=== PATIENT | male | born 1955 | race African-American/Black ===

== ENCOUNTER 2017-11-26 09:54 | Inpatient (IN) | payer OTHER ==
[2017-11-26 10:53] VITALS: BMI 25.1
--- NOTE | 2017-11-26 12:26 | HP ---
Admission ROS [facility] Chief Complaint: i need help to go to rehab for cocaine and marijuana dependence Allergies/Adverse Reactions: Allergies Allergy/AdvReac Type Severity Reaction Status Date / Time No Known Allergies Allergy Verified 11/26/17 11:08 History of Present Illness: this 61 years old male with cocaine and marijuana dependence,seeking rehab, never been in the treatment before type 2 dm for 12 yeras arthritis schizophrenia - Ebola screening Have you traveled outside of the country in the last 21 days: No Have you had contact with anyone from an Ebola affected area: No Have you been sick,other than usual withdrawal symptoms: No Do you have a fever: No - Review of Systems Constitutional: No Symptoms Reported EENT: reports: No Symptoms Reported Respiratory: reports: No Symptoms reported Cardiac: reports: No Symptoms Reported GI: reports: No Symptoms Reported : reports: No Symptoms Reported Musculoskeletal: reports: No Symptoms Reported Neuro: reports: No Symptoms reported Endocrine: reports: No Symptoms Reported Hematology: reports: No Symptoms Reported Psychiatric: reports: other (schizophrenia) Patient History - Patient Medical History Hx Anemia: No Hx Asthma: No Hx Chronic Obstructive Pulmonary Disease (COPD): No Hx Cancer: No Hx Cardiac Disorders: No Hx Congestive Heart Failure: No Hx Hypertension: Yes (no med) Hx Hypercholesterolemia: No Hx Pacemaker: No HX Cerebrovascular Accident: No Hx Seizures: No Hx Diabetes: Yes (NIDDM) Hx Gastrointestinal Disorders: No Hx Liver Disease: No Hx Genitourinary Disorders: No Hx Sexually Transmitted Disorders: No Hx Renal Disease (ESRD): No Hx Thyroid Disease: No Hx Human Immunodeficiency Virus (HIV): No (last 2017 negative) Hx Hepatitis C: No Hx Depression: Yes Hx Suicide Attempt: No Hx Bipolar Disorder: No Hx Schizophrenia: Yes Other Medical History: no suicidal,no homicidal - Patient Surgical History Past Surgical History: Yes Hx Neurologic Surgery: No Hx Cataract Extraction: No Hx Cardiac Surgery: No Hx Lung Surgery: No Hx Breast Surgery: No Hx Breast Biopsy: No Hx Abdominal Surgery: No Hx Appendectomy: No Hx Cholecystectomy: No Hx Genitourinary Surgery: No Hx Section: No Hx Orthopedic Surgery: No Other Surgical History: laceration, left side of face - PPD History Previous Implant?: Yes Documented Results: Negative w/o proof Implanted On Prior R Admission?: No PPD to be Administered?: Yes - Smoking Cessation Smoking history: Never smoked Have you smoked in the past 12 months: No Hx Chewing Tobacco Use: No Initiated information on smoking cessation: No - Substance & Tx. History Hx Alcohol Use: No Hx Substance Use: Yes Substance Use Type: Cocaine - Substances Abused Cocaine Route: Smoking Frequency: 3-6 times per week Amount used: $30 Age of first use: 17 Date of Last Use: 11/25/17 Marijuana/Hashish Route: Smoking Frequency: 1-3 times last 30 days Amount used: 5$ Age of first use: 17 Date of Last Use: 11/25/17 Family Disease History - Family Disease History Family History: Denies Admission Physical Exam [facility] - Vital Signs Vital Signs: Vital Signs - 24 hr 11/26/17 10:51 Temperature 98.2 F Pulse Rate 90 Respiratory 18 Rate Blood Pressure 140/80 - Physical General Appearance: Yes: Within Normal Limits HEENTM: Yes: Normal ENT Inspection, DI, Pharynx Normal Respiratory: Yes: Lungs Clear, Normal Breath Sounds, No Respiratory Distress Neck: Yes: Within Normal Limits, Supple, Trachea in good position Breast: Yes: Within Normal Limits Cardiology: Yes: Within Normal Limits, Regular Rhythm, Regular Rate, S1, S2 Abdominal: Yes: Normal Bowel Sounds, Non Tender, Flat, Soft Genitourinary: Yes: Within Normal Limits Back: Yes: Within Normal Limits Musculoskeletal: Yes: Within Normal Limits Extremities: Yes: Within Normal Limits Neurological: Yes: 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 intact, Fully Oriented, Alert, Motor Strength 5/5 Integumentary: Yes: Within Normal Limits Lymphatic: Yes: Within Normal Limits - Diagnostic (1) Cocaine dependence Current Visit: Yes Status: Acute (2) Cannabis dependence Current Visit: Yes Status: Acute (3) Schizophrenia Current Visit: Yes Status: Acute (4) DM type 2 (diabetes mellitus, type 2) Current Visit: Yes Status: Acute Cleared for Admission [facility] - Detox or Rehab Claeared for Rehab Admission: Yes [facility] Breath Alcohol Content Breath Alcohol Content: 0 Urine Drug Screen - Results Drug Screen Negative: No Urine Drug Screen Results: THC-Marijuana, JOSIANE-Cocaine Inpatient Rehab Admission - Initial Determination Are CD services needed?: Yes Free of communicable disease: Yes Not in need of hospitalization: Yes - Rehab Admission Criteria Poor recovery environment: Yes Comorbidities: Yes Patient is meeting Inpatient Rehab admission criteria:: Yes
[2017-11-26] MEDS ORDERED: IBUPROFEN 400 MG TABLET (FP) PO PRN (12:40)
[2017-11-26] MEDS ORDERED: MAGNESIUM CITRATE 300 ML BOTTLE PO PRN (12:40)
[2017-11-26] MEDS ORDERED: P-EPHED 60MG/TRIPROLIDI 2.5MG TABLET PO PRN (12:40)
[2017-11-26] MEDS ORDERED: hydrOXYzine PAMOATE 50 MG CAPSULE (FP) PO PRN (12:40)
[2017-11-26] MEDS ORDERED: MENTHOL/PHENOL 1 EACH UD MM PRN (12:40)
[2017-11-26] MEDS ORDERED: MAGNESIUM HYDROX 2400MG/30ML ORAL SUSPENSION 30 ML CUP PO PRN (12:40)
[2017-11-26] MEDS ORDERED: MAG HYDROX/AL HYDROX/SIMETH 30 ML UNIT-DOSE CUP PO PRN (12:40)
[2017-11-26] MEDS ORDERED: ACETAMINOPHEN 325 MG TABLET (FP) PO PRN (12:40)
[2017-11-26] MEDS ORDERED: guaiFENesin/D-METHORPHAN HB 10 ML UNIT-DOSE CUPS PO PRN (12:40)
[2017-11-26] MEDS ORDERED: LOPERAMIDE HCL 2 MG CAPSULE PO PRN (12:40)
[2017-11-26] MEDS: metFORMIN HCL 500 MG TABLET (FP) PO SCH (16:59)
[2017-11-26] MEDS: INSULIN (NOVOLOG) ASPART 100 UNITS/ML 10ML VIAL SQ SCH ×2 (17:01→21:49)
[2017-11-26 18:45] LABS: HEMATOCRIT 36.9 % (35.4-49); MCH 26.4 pg (25.7-33.7); MCHC 32.4 g/dl (32.0-35.9); MEAN CELL VOLUME 81.4 fl (80-96); MEAN PLT VOLUME 8.6 fl (7.5-11.1); PLATELET COUNT 245 K/MM3 (134-434); RBC 4.54 M/mm3 (4.00-5.60); RDW 14.2 % (11.9-15.9); WHITE BLOOD COUNT 5.3 K/mm3 (4.0-10.0)
[2017-11-26 18:52] LABS: ALBUMIN 3.8 g/dl (3.4-5.0); ANION GAP 10 (8-16); BLOOD UREA NITROGEN 19 mg/dL (7-18); CALCIUM 9.8 mg/dL (8.5-10.1); CHLORIDE 96 mmol/L (98-107); CO2 30 mmol/L (21-32); CREATININE 1.4 mg/dL (0.7-1.3); POTASSIUM 4.7 mmol/L (3.5-5.1); SGOT/AST 18 U/L (15-37); SGPT/ALT 30 U/L (12-78); SODIUM 136 mmol/L (136-145)
[2017-11-26 18:53] LABS: ALK PHOS 104 U/L (45-117); BILIRUBIN,TOTAL 0.7 mg/dL (0.2-1.0); TOT PROT 7.5 g/dl (6.4-8.2)
[2017-11-26 19:04] LABS: URINE APPEARANCE CLEAR; URINE BILIRUBIN NEGATIVE (NEGATIVE); URINE BLOOD NEGATIVE (NEGATIVE); URINE COLOR COLORLESS; URINE GLUCOSE (UA) 3+ (NEGATIVE); URINE KETONE NEGATIVE (NEGATIVE); URINE LEUK ESTERASE NEGATIVE (NEGATIVE); URINE NITRITE NEGATIVE (NEGATIVE); URINE PROTEIN NEGATIVE (NEGATIVE); URINE UROBILINOGEN NEGATIVE mg/dL (0.2-1.0)
[2017-11-26 19:32] LABS: SICKLE CELL SCREEN NEGATIVE (NEGATIVE)
[2017-11-26 20:25] LABS: GLUCOSE,RANDOM 550 mg/dL (74-106)
--- NOTE | 2017-11-26 20:31 | PN ---
[facility] Progress Note Note: received lab call that serum glucose level 550 blood drawn at 1200 pm today case discuss with 3w nurse herbert qid with novolog coverage
[2017-11-26] MEDS: risperiDONE 0.5 MG TABLET (FP) PO SCH (21:50)
[2017-11-26] MEDS: traZODone HCL 50 MG TABLET (FP) PO SCH (21:50)
[2017-11-26] MEDS: THIAMINE HCL 100 MG TABLET (FP) PO SCH (21:50)
[2017-11-26] MEDS ORDERED: INSULIN (NOVOLOG) ASPART 100 UNITS/ML 10ML VIAL ONE (22:09)
--- NOTE | 2017-11-27 06:19 | HP ---
Psychiatrist Admission - Data Date of interview: 11/27/17 Admission source: [facility] Identifying data: This is the first [facility] admission for this 61 years old single Black male, unemployed on SSI, living at [facility] Medical History: Significant for hypertension, type 2 diabetes mellitus, arthritis and history of surgery for laceration of left side of face Physical/Sexual Abuse/Trauma History: Denies history of verbal, physical or sexual abuse as well as DV relationship. No service Additional Comment: Reports history of multiple previous arrests including 2-3 felony convictions. No parole/probation at present Vital Signs: Vital Signs - 24 hr 11/26/17 11/27/17 11/27/17 10:51 00:30 03:30 Temperature 98.2 F Pulse Rate 90 Respiratory Rate Blood Pressure 140/80 Allergies/Adverse Reactions: Allergies Allergy/AdvReac Type Severity Reaction Status Date / Time No Known Allergies Allergy Verified 11/26/17 11:08 Date of last physical exam: 11/26/17 Concur with the findings of this exam: Yes - Substance Abuse/Tx History Hx Alcohol Use: No Hx Substance Use: Yes Substance Use Type: Cocaine (Started smoking crack cocaine at at age 17, consumes $30 worth 3-6 times weekly. Last smoked on 11/25/17), Marijuana (Started smoking marijuana at age 17, consumes $5 worth 1-3 times for the last 30 days. Last smoked on 11/25/16) Hx Substance Use Treatment: Yes (3-4 previous inpt detox. 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) Sleep: Well Appetite: Good Muscle strength/Tone: Normal Gait/Station: Normal Psychiatric Findings - Problem List ([place] 1, 2,3) (1) Cocaine dependence Current Visit: Yes Status: Acute (2) Cannabis dependence Current Visit: Yes Status: Acute (3) Schizoaffective disorder Current Visit: Yes Status: Chronic (4) Bipolar disorder Current Visit: Yes Status: Ruled-out (5) Substance induced mood disorder Current Visit: Yes Status: Acute (6) DM type 2 (diabetes mellitus, type 2) Current Visit: Yes Status: Chronic (7) HTN (hypertension) Current Visit: Yes Status: Chronic (8) Arthritis Current Visit: Yes Status: Chronic - Initial Treatment Plan Initial Treatment Plan: 1) Continue Risperdal 0.5 mg po HS and Trazadone 150 mg po HS. 2) Monitor progress
[2017-11-27] MEDS: metFORMIN HCL 500 MG TABLET (FP) PO SCH ×2 (07:49→17:10)
[2017-11-27] MEDS: INSULIN (NOVOLOG) ASPART 100 UNITS/ML 10ML VIAL SQ SCH ×4 (07:50→22:04)
[2017-11-27] MEDS: PRENATAL VITAMINS W/ FOLIC ACID TABLET (FP) PO SCH (10:33)
[2017-11-27] MEDS ORDERED: INSULIN (NOVOLOG) ASPART 100 UNITS/ML 10ML VIAL ONE ×3 (11:34→22:07)
[2017-11-27] MEDS ORDERED: FLU VACCINE QUAD 60 MCG/0.5 ML (MDV 17-18) IM ONE (12:00)
--- NOTE | 2017-11-27 12:33 | EKG ---
Test Reason : Blood Pressure : / mmHG Vent. Rate : 084 BPM Atrial Rate : 084 BPM P-R Int : 172 ms QRS Dur : 100 ms QT Int : 426 ms P-R-T Axes : 066 040 053 degrees QTc Int : 503 ms POOR DATA QUALITY, INTERPRETATION MAY BE ADVERSELY AFFECTED NORMAL SINUS RHYTHM POSSIBLE LEFT ATRIAL ENLARGEMENT T WAVE ABNORMALITY, CONSIDER LATERAL ISCHEMIA PROLONGED QT ABNORMAL ECG NO PREVIOUS ECGS AVAILABLE Confirmed by MARYANNE MUIR, GARRY ([id number]) on 11/27/2017 12:33:09 PM Referred By: Confirmed By:GARRY MADDEN MD
--- NOTE | 2017-11-27 12:35 | EKG ---
Test Reason : Blood Pressure : / mmHG Vent. Rate : 097 BPM Atrial Rate : 097 BPM P-R Int : 130 ms QRS Dur : 092 ms QT Int : 338 ms P-R-T Axes : 065 046 031 degrees QTc Int : 429 ms NORMAL SINUS RHYTHM NORMAL ECG WHEN COMPARED WITH ECG OF 26-NOV-2017 21:53, T WAVE INVERSION NO LONGER EVIDENT IN LATERAL LEADS QT HAS SHORTENED Confirmed by MARYANNE MUIR, GARRY ([id number]) on 11/27/2017 12:35:08 PM Referred By: Russ VIDALES Confirmed By:GARRY MADDEN MD
[2017-11-27] MEDS ORDERED: risperiDONE 0.5 MG TABLET (FP) PO SCH (22:00)
[2017-11-27] MEDS ORDERED: traZODone HCL 50 MG TABLET (FP) PO SCH (22:00)
[2017-11-27] MEDS: risperiDONE 0.5 MG TABLET (FP) PO SCH (22:05)
[2017-11-27] MEDS: THIAMINE HCL 100 MG TABLET (FP) PO SCH (22:05)
[2017-11-27] MEDS: traZODone HCL 50 MG TABLET (FP) PO SCH (22:07)
[2017-11-28] MEDS: metFORMIN HCL 500 MG TABLET (FP) PO SCH ×3 (06:22→17:00)
[2017-11-28] MEDS: INSULIN (NOVOLOG) ASPART 100 UNITS/ML 10ML VIAL SQ SCH ×4 (06:23→21:46)
[2017-11-28] MEDS: PRENATAL VITAMINS W/ FOLIC ACID TABLET (FP) PO SCH (10:12)
[2017-11-28] MEDS ORDERED: INSULIN (NOVOLOG) ASPART 100 UNITS/ML 10ML VIAL ONE (11:49)
--- NOTE | 2017-11-28 12:10 | PN ---
[facility] Progress Note Note: Pt. c/o not feeling well BS 337mg/dl reg ins given. Pt. was on aspirin 81mg & lisinopril 2.5mg. BP 130/77 EKG noted Dx. : Uncontrolled Type II DM P : Increase Metformin to 1000mg bid
--- NOTE | 2017-11-28 14:50 | PN ---
[facility] Progress Note Note: Hot coffee accidentally spilled on pt.'s dorsum of left hand between thumb and index. Exam : No injury noted at this time P : continue Ice pack
[2017-11-28] MEDS: LISINOPRIL 5 MG TABLET (FP) PO SCH (14:55)
[2017-11-28] MEDS: ASPIRIN COATED 81 MG TABLET.EC PO SCH (14:57)
[2017-11-28] MEDS: risperiDONE 0.5 MG TABLET (FP) PO SCH (21:45)
[2017-11-28] MEDS: THIAMINE HCL 100 MG TABLET (FP) PO SCH (21:45)
[2017-11-28] MEDS: traZODone HCL 50 MG TABLET (FP) PO SCH (21:45)
[2017-11-29] MEDS: metFORMIN HCL 500 MG TABLET (FP) PO SCH ×2 (07:13→16:51)
[2017-11-29] MEDS: INSULIN (NOVOLOG) ASPART 100 UNITS/ML 10ML VIAL SQ SCH ×4 (07:13→21:42)
[2017-11-29] MEDS: LISINOPRIL 5 MG TABLET (FP) PO SCH (10:15)
[2017-11-29] MEDS: ASPIRIN COATED 81 MG TABLET.EC PO SCH (10:15)
[2017-11-29] MEDS: PRENATAL VITAMINS W/ FOLIC ACID TABLET (FP) PO SCH (10:15)
[2017-11-29] MEDS ORDERED: INSULIN (NOVOLOG) ASPART 100 UNITS/ML 10ML VIAL ONE ×2 (11:36→22:02)
[2017-11-29] MEDS: risperiDONE 0.5 MG TABLET (FP) PO SCH (21:42)
[2017-11-29] MEDS: traZODone HCL 50 MG TABLET (FP) PO SCH (21:42)
[2017-11-29] MEDS: THIAMINE HCL 100 MG TABLET (FP) PO SCH (21:42)
[2017-11-30] MEDS: INSULIN (NOVOLOG) ASPART 100 UNITS/ML 10ML VIAL SQ SCH ×4 (07:31→21:53)
[2017-11-30] MEDS: metFORMIN HCL 500 MG TABLET (FP) PO SCH ×2 (07:31→16:57)
[2017-11-30] MEDS ORDERED: INSULIN (NOVOLOG) ASPART 100 UNITS/ML 10ML VIAL ONE ×2 (07:32→11:55)
[2017-11-30] MEDS: LISINOPRIL 5 MG TABLET (FP) PO SCH (10:33)
[2017-11-30] MEDS: PRENATAL VITAMINS W/ FOLIC ACID TABLET (FP) PO SCH (10:33)
[2017-11-30] MEDS: ASPIRIN COATED 81 MG TABLET.EC PO SCH (10:33)
[2017-11-30] MEDS: risperiDONE 0.5 MG TABLET (FP) PO SCH (21:52)
[2017-11-30] MEDS: THIAMINE HCL 100 MG TABLET (FP) PO SCH (21:52)
[2017-11-30] MEDS: traZODone HCL 50 MG TABLET (FP) PO SCH (21:52)
[2017-12-01] MEDS: metFORMIN HCL 500 MG TABLET (FP) PO SCH ×2 (06:55→16:46)
[2017-12-01] MEDS: INSULIN (NOVOLOG) ASPART 100 UNITS/ML 10ML VIAL SQ SCH ×4 (06:56→21:46)
[2017-12-01] MEDS: PRENATAL VITAMINS W/ FOLIC ACID TABLET (FP) PO SCH (10:43)
[2017-12-01] MEDS: LISINOPRIL 5 MG TABLET (FP) PO SCH (10:43)
[2017-12-01] MEDS: ASPIRIN COATED 81 MG TABLET.EC PO SCH (10:43)
[2017-12-01] MEDS ORDERED: INSULIN (NOVOLOG) ASPART 100 UNITS/ML 10ML VIAL ONE (11:49)
[2017-12-01] MEDS ORDERED: MAGNESIUM SULFATE 16 OZ CRYSTALS TP ONE (15:30)
[2017-12-01] MEDS: risperiDONE 0.5 MG TABLET (FP) PO SCH (21:47)
[2017-12-01] MEDS: THIAMINE HCL 100 MG TABLET (FP) PO SCH (21:47)
[2017-12-01] MEDS: traZODone HCL 50 MG TABLET (FP) PO SCH (21:47)
[2017-12-02] MEDS: metFORMIN HCL 500 MG TABLET (FP) PO SCH ×2 (06:31→17:09)
[2017-12-02] MEDS: INSULIN (NOVOLOG) ASPART 100 UNITS/ML 10ML VIAL SQ SCH ×4 (06:35→22:18)
[2017-12-02] MEDS: ASPIRIN COATED 81 MG TABLET.EC PO SCH (10:38)
[2017-12-02] MEDS: PRENATAL VITAMINS W/ FOLIC ACID TABLET (FP) PO SCH (10:38)
[2017-12-02] MEDS: LISINOPRIL 5 MG TABLET (FP) PO SCH (10:38)
[2017-12-02] MEDS ORDERED: INSULIN (NOVOLOG) ASPART 100 UNITS/ML 10ML VIAL ONE ×2 (11:43→17:08)
[2017-12-02] MEDS: MAGNESIUM SULFATE 16 OZ CRYSTALS TP SCH (11:44)
[2017-12-02] MEDS: risperiDONE 0.5 MG TABLET (FP) PO SCH (22:17)
[2017-12-02] MEDS: traZODone HCL 50 MG TABLET (FP) PO SCH (22:17)
[2017-12-02] MEDS: THIAMINE HCL 100 MG TABLET (FP) PO SCH (22:17)
[2017-12-03] MEDS: metFORMIN HCL 500 MG TABLET (FP) PO SCH ×2 (07:26→16:55)
[2017-12-03] MEDS: INSULIN (NOVOLOG) ASPART 100 UNITS/ML 10ML VIAL SQ SCH ×4 (07:26→21:07)
[2017-12-03] MEDS ORDERED: INSULIN (NOVOLOG) ASPART 100 UNITS/ML 10ML VIAL ONE ×4 (07:43→21:44)
[2017-12-03] MEDS ORDERED: PT OWN MED DRAWER 7, Y5N ONE (09:03)
[2017-12-03] MEDS: ASPIRIN COATED 81 MG TABLET.EC PO SCH (10:02)
[2017-12-03] MEDS: PRENATAL VITAMINS W/ FOLIC ACID TABLET (FP) PO SCH (10:02)
[2017-12-03] MEDS: LISINOPRIL 5 MG TABLET (FP) PO SCH (10:03)
[2017-12-03] MEDS: MAGNESIUM SULFATE 16 OZ CRYSTALS TP SCH (10:03)
[2017-12-03] MEDS: traZODone HCL 50 MG TABLET (FP) PO SCH (21:07)
[2017-12-03] MEDS: risperiDONE 0.5 MG TABLET (FP) PO SCH (21:07)
[2017-12-03] MEDS: THIAMINE HCL 100 MG TABLET (FP) PO SCH (21:07)
[2017-12-04] MEDS: INSULIN (NOVOLOG) ASPART 100 UNITS/ML 10ML VIAL SQ SCH ×4 (07:04→22:08)
[2017-12-04] MEDS: metFORMIN HCL 500 MG TABLET (FP) PO SCH ×2 (07:04→17:08)
[2017-12-04] MEDS ORDERED: INSULIN (NOVOLOG) ASPART 100 UNITS/ML 10ML VIAL ONE ×4 (07:04→22:07)
[2017-12-04] MEDS: PRENATAL VITAMINS W/ FOLIC ACID TABLET (FP) PO SCH (10:09)
[2017-12-04] MEDS: ASPIRIN COATED 81 MG TABLET.EC PO SCH (10:09)
[2017-12-04] MEDS: LISINOPRIL 5 MG TABLET (FP) PO SCH (10:11)
[2017-12-04] MEDS ORDERED: PT OWN MED DRAWER 7, Y5N ONE (10:13)
[2017-12-04] MEDS: MAGNESIUM SULFATE 16 OZ CRYSTALS TP SCH (10:13)
[2017-12-04] MEDS: risperiDONE 0.5 MG TABLET (FP) PO SCH (22:02)
[2017-12-04] MEDS: traZODone HCL 50 MG TABLET (FP) PO SCH (22:02)
[2017-12-04] MEDS: THIAMINE HCL 100 MG TABLET (FP) PO SCH (22:40)
[2017-12-05] MEDS: metFORMIN HCL 500 MG TABLET (FP) PO SCH ×2 (06:25→16:58)
[2017-12-05] MEDS ORDERED: INSULIN (NOVOLOG) ASPART 100 UNITS/ML 10ML VIAL ONE ×4 (07:17→22:04)
[2017-12-05] MEDS: INSULIN (NOVOLOG) ASPART 100 UNITS/ML 10ML VIAL SQ SCH ×4 (07:17→21:35)
[2017-12-05] MEDS: PRENATAL VITAMINS W/ FOLIC ACID TABLET (FP) PO SCH (10:03)
[2017-12-05] MEDS: ASPIRIN COATED 81 MG TABLET.EC PO SCH (10:03)
[2017-12-05] MEDS: LISINOPRIL 5 MG TABLET (FP) PO SCH (10:03)
[2017-12-05] MEDS ORDERED: PT OWN MED DRAWER 7, Y5N ONE (10:06)
[2017-12-05] MEDS: MAGNESIUM SULFATE 16 OZ CRYSTALS TP SCH (10:07)
[2017-12-05] MEDS: THIAMINE HCL 100 MG TABLET (FP) PO SCH (21:35)
[2017-12-05] MEDS: traZODone HCL 50 MG TABLET (FP) PO SCH (21:35)
[2017-12-05] MEDS: risperiDONE 0.5 MG TABLET (FP) PO SCH (21:36)
[2017-12-06] MEDS: metFORMIN HCL 500 MG TABLET (FP) PO SCH ×2 (06:46→17:14)
[2017-12-06] MEDS: INSULIN (NOVOLOG) ASPART 100 UNITS/ML 10ML VIAL SQ SCH ×4 (06:55→22:16)
[2017-12-06] MEDS ORDERED: INSULIN (NOVOLOG) ASPART 100 UNITS/ML 10ML VIAL ONE ×4 (06:58→22:14)
[2017-12-06] MEDS ORDERED: PT OWN MED DRAWER 7, Y5N ONE (08:49)
[2017-12-06] MEDS: LISINOPRIL 5 MG TABLET (FP) PO SCH (09:57)
[2017-12-06] MEDS: PRENATAL VITAMINS W/ FOLIC ACID TABLET (FP) PO SCH (09:57)
[2017-12-06] MEDS: ASPIRIN COATED 81 MG TABLET.EC PO SCH (09:57)
[2017-12-06] MEDS: MAGNESIUM SULFATE 16 OZ CRYSTALS TP SCH (09:57)
[2017-12-06] MEDS: risperiDONE 0.5 MG TABLET (FP) PO SCH (22:15)
[2017-12-06] MEDS: traZODone HCL 50 MG TABLET (FP) PO SCH (22:15)
[2017-12-06] MEDS: THIAMINE HCL 100 MG TABLET (FP) PO SCH (22:15)
[2017-12-07] MEDS: metFORMIN HCL 500 MG TABLET (FP) PO SCH ×2 (06:17→16:47)
[2017-12-07] MEDS: INSULIN (NOVOLOG) ASPART 100 UNITS/ML 10ML VIAL SQ SCH ×4 (06:19→22:17)
[2017-12-07] MEDS ORDERED: INSULIN (NOVOLOG) ASPART 100 UNITS/ML 10ML VIAL ONE ×3 (06:47→16:41)
[2017-12-07] MEDS: PRENATAL VITAMINS W/ FOLIC ACID TABLET (FP) PO SCH (09:50)
[2017-12-07] MEDS: MAGNESIUM SULFATE 16 OZ CRYSTALS TP SCH (09:50)
[2017-12-07] MEDS: ASPIRIN COATED 81 MG TABLET.EC PO SCH (09:50)
[2017-12-07] MEDS: LISINOPRIL 5 MG TABLET (FP) PO SCH (09:51)
[2017-12-07] MEDS: traZODone HCL 50 MG TABLET (FP) PO SCH (22:12)
[2017-12-07] MEDS: risperiDONE 0.5 MG TABLET (FP) PO SCH (22:13)
[2017-12-07] MEDS: THIAMINE HCL 100 MG TABLET (FP) PO SCH (22:13)
[2017-12-08 06:59] VITALS: TEMP 98.8
[2017-12-08] MEDS: metFORMIN HCL 500 MG TABLET (FP) PO SCH (07:29)
[2017-12-08] MEDS: INSULIN (NOVOLOG) ASPART 100 UNITS/ML 10ML VIAL SQ SCH (07:29)
[2017-12-08] MEDS ORDERED: INSULIN (NOVOLOG) ASPART 100 UNITS/ML 10ML VIAL ONE (07:31)
[2017-12-08] MEDS: LISINOPRIL 5 MG TABLET (FP) PO SCH (09:13)
[2017-12-08] MEDS: PRENATAL VITAMINS W/ FOLIC ACID TABLET (FP) PO SCH (09:13)
[2017-12-08] MEDS: ASPIRIN COATED 81 MG TABLET.EC PO SCH (09:13)
[2017-12-08] MEDS: MAGNESIUM SULFATE 16 OZ CRYSTALS TP SCH (09:58)
[2017-12-08 10:11] VITALS: BP 129/78; PULSE 89
--- NOTE | 2017-12-08 10:22 | PN ---
S Progress Note (SOAP) Subjective: Informed by nursing staff that patient wants to leave the program early and has declined referral for aftercare. Discharge order placed and scripts for 30 days suppy of medications( Risperdal 0.5 mg po HS and Trazadone 150 mg po HS) are electronically transmitted to [facility] at [address] [place] [address]
== END 2017-12-08 11:30 | disposition home or self-care (01) | DRG 772 ==
LOC: YASAS 09:54 → Y3W 12:16
PROVIDERS: ADMIT Psychiatry & Neurology Psychiatry; ATTEND Psychiatry & Neurology Psychiatry
PROC: HZ42ZZZ Group Counseling for Substance Abuse Treatment, Cognitive-Behavioral (ICD-10-PCS; principal; 2017-11-26)
DX: F14.20 Cocaine dependence, uncomplicated (principal); F12.20 Cannabis dependence, uncomplicated; F25.9 Schizoaffective disorder, unspecified; F31.9 Bipolar disorder, unspecified; F19.24 Other psychoactive substance dependence with psychoactive substance-induced mood disorder; E11.65 Type 2 diabetes mellitus with hyperglycemia; I10 Essential (primary) hypertension; M19.90 Unspecified osteoarthritis, unspecified site; Z79.82 Long term (current) use of aspirin
CPT/HCPCS: 36415; 71046-TC; 80053; 81003; 82962; 85027; 85660; 86593; 90688; 93005; 93010